=== PATIENT | female | born 1960 | race Caucasian/White ===

== ENCOUNTER → 2020-07-06 10:58 | Outpatient (CLI) | payer BC, SELFPAY ==
--- NOTE | 2020-07-06 11:01 | BD_ITS ---
STUDY: DUAL ENERGY X-RAY ABSORPTIOMETRY / DXA REASON FOR EXAM: Female, 59 years old. 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 COMPARISON: None. FINDINGS: Lumbar Spine (L1-L4): g/cm2 (1.041) / T-score (-1.2) / Z-score (0.1) Findings are suggestive of osteopenia with a low fracture risk. Left Femur Total: g/cm2 (0.728) / T-score (-2.2) / Z-score (-1.3) Left Femoral Neck: g/cm2 (0.736) / T-score (-2.2) / Z-score (-0.9) Right Femur Total: g/cm2 (0.693) / T-score (-2.5) / Z-score (-1.5) Right Femoral Neck: g/cm2 (0.7-0) / T-score (-2.3) / Z-score (-1.0) BD/Dexa Bone Density Study IMPRESSION: The patient is considered osteoporotic as outlined below according to World Nasir Organization (WHO) criteria with a high fracture risk. Reference Information: The T-score is the number of standard deviations above or below the standard which is normal for young adults at their peak bone mineral density. The World Health Organization (WHO) interprets the T-scores as follows: Above -1 Normal bone density Between -1 and -2.5 Osteopenia Equal to / or below -2.5 Osteoporosis As a practical clinical guideline, osteopenia may be graded as follows: Mild -1 through -1.5 Moderate -1.6 through -2.0 Severe -2.1 through -2.4 The Z-score is the number of standard deviations above or below age-matched controls. A Z-score of less than -1.5 would be considered abnormal. References: 1. NIH Osteoporosis and Related Bone Diseases www osteo.org 2. International Society for Clinical Densitometry www iscd.org 3. National Osteoporosis Foundation www nof.org Electronically Signed: Nikko Thompson, at 10:19 EST , Service support ,
== END ==
PROVIDERS: PCP Nurse Practitioner Primary Care; Referring Provider Obstetrics & Gynecology; Visit Provider Obstetrics & Gynecology
DX: Z13.820 Encounter for screening for osteoporosis (principal); M85.80 Other specified disorders of bone density and structure, unspecified site
CPT/HCPCS: 77080

== ENCOUNTER → 2020-08-20 16:18 | Outpatient (CLI) | payer BC, SELFPAY ==
[2020-07-08 08:27] VITALS: BMI 21.8
--- NOTE | 2020-08-20 16:21 | RAD_ITS ---
STUDY: X-RAY - ABDOMEN/PELVIS REASON FOR EXAM: Female, 60 years old. ureteral and renal stone with hydronephrosis TECHNIQUE: Frontal view of the abdomen COMPARISON: None. FINDINGS: There is no intestinal obstruction. There is probably a 2 mm left renal lower pole calculus. Detection of hydronephrosis is not possible on plain films. There is a 6 mm right lower pelvic phlebolith. Skeleton is intact with sclerotic lesion in the left hip, incompletely evaluate. RAD/Abdomen Single View IMPRESSION: 1. 2 mm left renal lower pole calculus. 2. Left femoral proximal sclerotic lesion, refer to dedicated focal imaging. Electronically Signed: Jacky Graham MD at 17:02 EST Tel , Service support ,
== END ==
PROVIDERS: PCP Nurse Practitioner Primary Care; Referring Provider Urology; Visit Provider Urology
DX: N13.2 Hydronephrosis with renal and ureteral calculous obstruction (principal)
CPT/HCPCS: 74018

== ENCOUNTER → 2020-09-02 13:32 | Outpatient (CLI) | payer BC, SELFPAY ==
[2020-07-08 08:27] VITALS: BMI 21.8
--- NOTE | 2020-09-02 13:34 | RAD_ITS ---
STUDY: X-RAY - ABDOMEN/PELVIS REASON FOR EXAM: Female, 60 years old. KIDNEY STONE TECHNIQUE: Single AP view of the abdomen / pelvis. COMPARISON: None. FINDINGS: Normal visualized lung bases. There is an unremarkable bowel gas pattern. There is no demonstrated free abdominal air. There are a few small calcifications within the mid lower pole of the right kidney largest measuring 3 mm. Small calcification projecting over the lower pole of the left kidney measuring 3 mm, possibly stone. Pelvic phleboliths seen on the right measuring 1 cm. Normal visualized osseous structures. RAD/Abdomen Single View IMPRESSION: Possible tiny intrarenal stones as described, otherwise unremarkable x-ray of the abdomen. Electronically Signed: Ashely Persaud MD at 1:01 EST , Service support ,
== END ==
PROVIDERS: PCP Nurse Practitioner Primary Care; Referring Provider Urology; Visit Provider Urology
DX: N13.2 Hydronephrosis with renal and ureteral calculous obstruction (principal)
CPT/HCPCS: 74018

== ENCOUNTER → 2020-09-06 13:00 | Outpatient (CLI) | payer BC, SELFPAY ==
[2020-07-08 08:27] VITALS: BMI 21.8
--- NOTE | 2020-09-06 13:13 | CT_ITS ---
STUDY: CT ABDOMEN AND PELVIS WITHOUT CONTRAST REASON FOR EXAM: Female, 60 years old. RENAL STONE, R HYDRONEPHROSIS RADIATION DOSAGE (If Supplied By Facility): CTDIvol = ( 6.75 ) mGy, DLP = ( 345.48 ) mGycm TECHNIQUE: Transaxial images were obtained from the dome of the diaphragm to the symphysis pubis without oral contrast, and without intravenous contrast. Sagittal and coronal images were reconstructed. Individualized dose optimization techniques were used for this CT. COMPARISON: None. FINDINGS: There is a 7.3 mm x 1.2 cm bilobed nodule in the posterior medial aspect of the right lower lobe. The visualized portions of the heart are within normal limits. Normal liver. Normal gallbladder and extrahepatic biliary system. Normal spleen. Normal pancreas. Normal bilateral adrenal glands. Punctate calculus seen in the mid posterior calyx of the right kidney. This also evidence of a 3 mm calculus as well as a 2 mm calculus in the lower pole calyx of the right kidney. There is a 3.8 mm calculus in the lower pole calyx of the left kidney. A 2 mm calculus is seen in the mid pole calyx of the left kidney as well. Normal visualized stomach. Normal small intestine. Normal colon. The appendix is visualized and appears normal. There is scattered atherosclerotic calcification of the abdominal aorta, without a demonstrated aneurysm. Normal inferior vena cava. Normal retroperitoneum. Normal urinary bladder. Normal abdominal wall. Normal osseous structures. CT/Abdomen/Pelvis without Cont IMPRESSION: Small bilateral nonobstructive intrarenal calculi. Electronically Signed: Nikko Thompson MD at 13:47 EST , Service support ,
== END ==
PROVIDERS: PCP Nurse Practitioner Primary Care; Referring Provider Urology; Visit Provider Urology
DX: N13.2 Hydronephrosis with renal and ureteral calculous obstruction (principal); Z20.828 Contact with and (suspected) exposure to other viral communicable diseases
CPT/HCPCS: 74176; 87426; C9803

== ENCOUNTER → 2022-12-06 | Outpatient (CLI) | payer BC, SELFPAY ==
--- NOTE | 2022-12-06 08:35 | BD_ITS ---
STUDY: DUAL ENERGY X-RAY ABSORPTIOMETRY / DXA REASON FOR EXAM: Female, 62 years old. [id number] TECHNIQUE: Bone Mineral Density (BMD) measurements of lumbar spine and bilateral hips were obtained. COMPARISON: Comparison is made with prior examination dated July 06, 2020. FINDINGS: Lumbar Spine (L1-L4): g/cm2 (0.979) / T-score (-0.6) / Z-score (1.0) Findings are suggestive of normal bone density with a low fracture risk. Left Femur Total: g/cm2 (0.666) / T-score (-2.3) / Z-score (-1.1) Left Femoral Neck: g/cm2 (0.630) / T-score (-2.0) / Z-score (-0.5) Right Femur Total: g/cm2 (0.664) / T-score (-2.3) / Z-score (-1.2) Right Femoral Neck: g/cm2 (0.683) / T-score (-1.5) / Z-score (-0.1) The T-Scores on the most recent prior examination were: Lumbar Spine (L1-L4): There has been improvement of bone density since the previous examination. Left Femur Total: which represents a worsening of 0.5%. Right Femur Total: which represents an improvement of 4.4%. BD/Dexa Bone Density Study IMPRESSION: The patient is considered osteopenic as outlined below according to World Nasir Organization (WHO) criteria with a high fracture risk. There has been improvement of bone density since the previous examination. Reference Information: The T-score is the number of standard deviations above or below the standard which is normal for young adults at their peak bone mineral density. The World Health Organization (WHO) interprets the T-scores as follows: Above -1 Normal bone density Between -1 and -2.5 Osteopenia Equal to / or below -2.5 Osteoporosis As a practical clinical guideline, osteopenia may be graded as follows: Mild -1 through -1.5 Moderate -1.6 through -2.0 Severe -2.1 through -2.4 The Z-score is the number of standard deviations above or below age-matched controls. A Z-score of less than -1.5 would be considered abnormal. References: 1. NIH Osteoporosis and Related Bone Diseases www osteo.org 2. International Society for Clinical Densitometry www iscd.org 3. National Osteoporosis Foundation www nof.org Electronically Signed: Nikko Thompson MD at 9:32 EDT ,
== END | disposition home or self-care (01) ==
LOC: OPBD 08:26
PROVIDERS: PCP Nurse Practitioner Primary Care; Referring Provider Internal Medicine Endocrinology, Diabetes & Metabolism; Visit Provider Internal Medicine Endocrinology, Diabetes & Metabolism
DX: M81.0 Age-related osteoporosis without current pathological fracture (principal)
CPT/HCPCS: 77080

== ENCOUNTER → 2025-04-08 | Outpatient (CLI) | payer MEDICARE, OTHER, SELFPAY ==
--- NOTE | 2025-04-08 15:33 | BD_ITS ---
PROCEDURE: DEXA BONE DENSITY STUDY 04/08/2025 REASON FOR EXAM: F, age 64 y/o . Postmenopausal screening. TECHNIQUE: Procedure Code: BDDBD Modality: DX Procedure: DEXA BONE DENSITY STUDY COMPARISON: 2022,2019 FINDINGS: BMD and T-SCORES Lumbar spine: 1.018 g/cm2, T-score -0.3 Levels: L1 through L4 Change from prior: Increase of 3.9%. Left femoral neck: 0.631 g/cm2, T-score -2.0 Femoral neck comparison data not recommended for monitoring change. Prior T-score Left total hip: 0.685 g/cm2, T-score -2.1 Change from prior: Increase of 2.8%. Right femoral neck: 0.619 g/cm2, T-score -2.1 Femoral neck comparison data not recommended for monitoring change. Prior T-score Right total hip: 0.669 g/cm2, T-score -2.2 Change from prior: . The World Health Organization has defined the following categories based on bone density: Normal bone density: T-score equal to or greater than -1.0 Osteopenia: T-score between -1.0 and -2.5 Osteoporosis: T-score equal to or less than -2.5 FRAX (or Comparable) Fracture Risk Assessment: 10 Year Probability of Fracture: Major Osteoporotic Fracture: 11% Hip Fracture: 1.7% (Note: FRAX is not to be reported in setting of normal range bone density, osteoporosis on DEXA, known history of osteoporosis, prior osteoporotic hip or vertebral fracture, or for any patient undergoing pharmacological treatment for bone loss.) The National Osteoporosis Foundation (NOF) recommends pharmacological treatment for patients with a FRAX 10-year risk of 3% or higher for a hip fracture, or 20% or higher for a major osteoporotic fracture, to prevent osteoporosis and reduce fracture risk. The patient does not meet the pharmacological treatment recommendations for prevention of osteoporosis. BD/Dexa Bone Density Study IMPRESSION: OSTEOPENIA. Recommend follow-up as clinically warranted. Reading Location: [id number]
== END | disposition home or self-care (01) ==
LOC: OPBD 15:28
PROVIDERS: PCP Nurse Practitioner Primary Care; Referring Provider Nurse Practitioner Primary Care; Visit Provider Nurse Practitioner Primary Care
DX: Z78.0 Asymptomatic menopausal state (principal); Z13.820 Encounter for screening for osteoporosis
CPT/HCPCS: 77080